=== PATIENT | male | born 1985 | race Caucasian/White ===

== ENCOUNTER 2022-07-09 01:52 | Emergency (ER) | payer OTHER, SELFPAY ==
[2022-07-09] VITALS (12 sets, daily range): BP systolic 115–125; BP diastolic 69–94; PULSE 72–102; RESP 14–22; TEMP 36.9; O2SAT 94–97
--- NOTE | ~2022-07-09 | US_ITS ---
EXAMINATION: US right upper quadrant DATE: 07/09/2022 07:37 INDICATION: Epigastric abdominal pain. TECHNIQUE: Multiple grayscale and Doppler ultrasound images of the abdomen were obtained. COMPARISON: None FINDINGS: The visualized portions of the head and body of the pancreas are normal. The liver is willem l without focal lesion. There is normal flow in main portal vein. The gallbladder is normal in size. No gallstones or gallbladder wall thickening. There is no sonographic Lee sign. The common duct is normal and measures 4 mm . IMPRESSION: 1. Normal right upper quadrant ultrasound. Reviewed, dictated and finalized at location A. RUMENT ADJUSTER
[2022-07-09 02:18] LABS: Basophils Percent Auto 0.2 % (0.2-1.2); Eosinophils Absolute Auto 0.1 K/mm3 (0-0.3); Eosinophils Percent Auto 0.9 % (0-4.4); Hematocrit 43.9 % (42.0-52.0); Hemoglobin 14.7 g/dL (14.0-18.0); Immature Granulocyte Absolute 0.02 K/mm3 (0.00-0.031); Immature Granulocyte Percent A 0.2 % (0-0.5); Lymphocytes Absolute Auto 0.63 K/mm3 (0.9-3.2); Lymphocytes Percent Auto 6.9 % (18.3-44.2); Mean Corpuscular HGB Conc 33.5 g/dl (32-36); Mean Corpuscular Hemoglobin 29.1 pg (26-34); Mean Corpuscular Volume 86.9 fl (80-100); Mean Platelet Volume 10.3 fl (7.4-10.4); Monocytes Absolute Auto 0.3 K/mm3 (0.1-0.6); Monocytes Percent Auto 3.5 % (2.6-8.5); Neutrophils Absolute Auto 8.1 K/mm3 (1.3-6.7); Neutrophils Percent Auto 88.3 % (45.5-73.1); Platelet Count Result 254 k/mm3 (150-375); Red Blood Count 5.05 M/mm3 (4.6-6.20); White Blood Count 9.2 K/mm3 (4.5-10.0)
[2022-07-09 02:32] LABS: Alanine Aminotransferase 90 U/L (6-50); Albumin Level 4.4 g/dL (3.5-5.1); Alkaline Phosphatase 60 U/L (38-126); Anion Gap 7 mmol/L (8-16); Aspartate Amino Transferase 129 U/L (17-59); Bilirubin,Total 1.3 mg/dL (0.2-1.3); Blood Urea Nitrogen 19 mg/dL (9-20); Calcium 8.3 mg/dL (8.4-10.2); Carbon Dioxide 25 mmol/L (22-30); Chloride 104 mmol/L (98-107); Estimated CRCL calculation 141 ml/min; Estimated Glomerular Filt Rate > 60; Glucose 128 mg/dL (65-110); Lipase 82 U/L (23-300); Potassium 3.7 mmol/L (3.4-5.0); Sodium 136 mmol/L (137-145)
--- NOTE | 2022-07-09 05:52 | ED.ABDPAIN ---
HPI - Abdominal Pain General Chief Complaint: Abdominal Pain <Vinicius Mcdaniel MD - Last Filed: 07/09/22 07:10> Stated Complaint: appendicitis/nausea x 12 hours <Vinicius Mcdaniel MD - Last Filed: 07/09/22 07:10> Time Seen by Provider: 07/09/22 05:38 <Vinicius Mcdaniel MD - Last Filed: 07/09/22 07:10> History of Present Illness HPI narrative: Patient is a 36-year-old male who presents ER with nausea. Began at 3 PM yesterday. Persistent. Ended up having emesis here and symptoms improved though he still has some mild nausea. He had about discomfort in his upper abdomen. No lower abdominal pain. No diarrhea but has felt the need to use the restroom and cannot. No radiation of discomfort into the back or shoulder. No urinary frequency urgency or dysuria. <Vinicius Mcdaniel MD - Last Filed: 07/09/22 07:10> Related Data Allergies/Adverse Reactions: Allergies Allergy/AdvReac Type Severity Reaction Status Date / Time No Known Allergies Allergy Verified 07/09/22 01:57 <Vinicius Mcdaniel MD - Last Filed: 07/09/22 07:10> Review of Systems Review of Systems: All systems reviewed & are unremarkable except as noted in HPI and below <Vinicius Mcdaniel MD - Last Filed: 07/09/22 07:10> Constitutional: Constitutional: Denies chills, Denies fatigue and Denies fever(s) <Vinicius Mcdaniel MD - Last Filed: 07/09/22 07:10> ENT: Denies nasal congestion and Denies sore throat <Vinicius Mcdaniel MD - Last Filed: 07/09/22 07:10> Cardiovascular: Cardiovascular: Denies chest pain, Denies rapid heart rate and Denies radiating jaw, neck or arm pain <Vinicius Mdcaniel MD - Last Filed: 07/09/22 07:10> Respiratory: Respiratory: Denies cough and Denies dyspnea <Vinicius Mcdaniel MD - Last Filed: 07/09/22 07:10> Gastrointestinal: Gastrointestinal: Reports abdominal pain, Denies diarrhea, Reports nausea and Reports vomiting <Vinicius Mcdaniel MD - Last Filed: 07/09/22 07:10> Genitourinary: Genitourinary: Denies hematuria, Denies dysuria and Denies urinary frequency <Vinicius Mcdaniel MD - Last Filed: 07/09/22 07:10> [facility] Past Medical History Medical History: Medical History (Updated 07/09/22 @ 08:41 by Vilma New MD) Healthy adult male <Vinicius Mcdaniel MD - Last Filed: 07/09/22 07:10> Surgical History Surgical History: Surgical History (Updated 07/09/22 @ 05:57 by Vinicius Mcdaniel MD) No history of previous surgery <Vinicius Mcdaniel MD - Last Filed: 07/09/22 07:10> Exam Narrative: GENERAL: Well-appearing, well-nourished, and in no acute distress. HEAD: Normocephalic, atraumatic. CHEST: Clear to auscultation. No respiratory distress. HEART: Regular rate and rhythm. Normal peripheral pulses. ABDOMEN: Soft, nontender, nondistended. EXTREMITIES: Normal range of motion. No edema. SKIN: Warm, dry, no rash. NEURO: Alert and oriented x3. PSYCH: Normal mood and affect. <Vinicius Mcdaniel MD - Last Filed: 07/09/22 07:10> Course Vital Signs Vital signs: Vital Signs Temperature 36.9 C 07/09/22 01:54 Pulse Rate 102 H 07/09/22 01:54 Respiratory Rate 16 07/09/22 01:54 Blood Pressure 125/94 H 07/09/22 01:54 Pulse Oximetry 97 07/09/22 01:54 Oxygen Delivery Room Air 07/09/22 01:54 Temperature 36.9 C 07/09/22 01:54 Pulse Rate 78 07/09/22 07:01 Respiratory Rate 20 07/09/22 07:01 Blood Pressure 120/70 07/09/22 07:01 Pulse Oximetry 94 07/09/22 07:01 Oxygen Delivery Room Air 07/09/22 01:54 <Vinicius Mcdaniel MD - Last Filed: 07/09/22 07:10> Vital Signs Temperature 36.9 C 07/09/22 01:54 Pulse Rate 102 H 07/09/22 01:54 Respiratory Rate 16 07/09/22 01:54 Blood Pressure 125/94 H 07/09/22 01:54 Pulse Oximetry 97 07/09/22 01:54 Oxygen Delivery Room Air 07/09/22 01:54 Temperature 36.9 C 07/09/22 01:54 Pulse Rate 78 07/09/22 07:01 Respiratory Rate 20 07/09/22 07:01 Blood Pressure
[2022-07-09] MEDS: ONDANSETRON HCL ODT 4 MG TABLET PO (06:00)
[2022-07-09 06:16] LABS: Add Urine Microscopic? YES; Appearance Urine Clear (Clear); Bilirubin Urine Negative (Negative); Blood Urine Negative (Negative); Color Urine Yellow (Yellow); Glucose Urine UA Negative (Negative); Ketones Urine Negative (Negative); Leukocyte Esterase Ur Negative LEU/UL (Negative); Nitrate Urine Negative (Negative); Protein Urine Negative (Negative); pH Urine 6.5 (5.0-9.0)
[2022-07-09 06:36] LABS: Mucus Urine Rare /lpf; RBC Urine 0-2 /hpf (0-2); WBC Urine 0-3 /hpf
== END 2022-07-09 08:48 | disposition home or self-care (01) ==
PROVIDERS: Emergency Medicine; Emergency Provider Emergency Medicine
DX: R10.10 Upper abdominal pain, unspecified (principal)
CPT/HCPCS: 36415; 76705; 80053; 81001; 83690; 85025; 99284; A9270

== ENCOUNTER 2023-11-11 20:06 | Inpatient (IN) | payer OTHER, SELFPAY ==
[2023-11-11] VITALS (7 sets, daily range): BP systolic 113–154; BP diastolic 64–91; PULSE 73–89; RESP 15–20; TEMP 36.9; O2SAT 93–100
--- NOTE | ~2023-11-11 | XR_ITS ---
Supine and upright views of the abdomen Clinical history: NG tube placement Findings: NG tube is in satisfactory position. Questionable small bowel obstruction or ileus. No free air evident. No abnormal mass lesion or calcification is seen. Osseous structures are intact. Impression: NG tube in satisfactory position. Questionable small bowel obstruction versus ileus. Reviewed, dictated and finalized at [facility]. Impression: NG tube in satisfactory position. Questionable small bowel obstruction versus ileus.
--- NOTE | ~2023-11-11 | XR_ITS ---
EXAMINATION: XR sm bowel follow through WS DATE: 11/12/2023 13:33 INDICATION: Small bowel obstruction TECHNIQUE: Air Traffic Control Supervisor radiograph(s) of the abdomen was/were obtained. Water-soluble oral contrast was admi nistered, and sequential radiographs of the abdomen were obtained until oral contrast was noted to be in the proximal colon. COMPARISON: CT dated 11/11/2023 FINDINGS: Nasogastric tube with tip in proximal side port in the body of the stomach. There are multiple gas-fi lled but not frankly dilated loops of small bowel throughout the visualized abdomen. Moderate amount of scattered colonic stool. Transit time from the stomach to proximal colon was approximately 45-60 m inutes. There is normal caliber and mucosal fold pattern throughout the small bowel. IMPRESSION: 1. Normal small bowel follow-through with resolution of prior obstruction. Reviewed, dictated and finalized at location A.
--- NOTE | ~2023-11-11 | CT_ITS ---
EXAMINATION: CT abdomen pelvis w con DATE: 11/11/2023 22:29 INDICATION: Epigastric pain TECHNIQUE: Computed tomography (CT) of the abdomen and pelvis was performed with 100 mL Omnipaque-350 intravenous contrast. Automated exposure control and iterative reconstruction technique were employe d. The dose-length product was 519.47 mGy-cm. COMPARISON: None. FINDINGS: Lower thorax: Tree-in-bud opacities in the lingula and right middle lobe. Moderate fat-containing hia lobo hernia. Liver: Enlarged. Subcentimeter right lobe hypodensity, likely cyst or hemangioma Biliary/Gallbladder: Gallbladder is normal. No bile duct dilation. Pancreas: No mass or duct dilation. Spleen: Normal. Adrenals:No mass. Kidneys: No suspicious mass, obstructing stone, or hydronephrosis. GI tract: Mild antral wall edema. Multiple loops of dilated proximal small bowel with mild vasa recta edema and interloop fluid, uniform bowel wall enhancement, transition point in the mid abdomen (axia l image 99/219). Fecal appearing small bowel content. No pneumatosis. Normal appendix. Diverticulosis without diverticulitis. Mesentery/Peritoneum: No mass or free air. Small volume ascites Retroperitoneum: No mass. Pelvis: Pelvic organs are within normal limits. Soft Tissues: Soft tissues and body wall unremarkable. Bones: No acute osseous finding. IMPRESSION: Antral gastritis. Proximal small bowel obstruction, transition point in the mid abdomen, possibly secondary to adhesion . Small volume ascites. Reviewed, dictated and finalized at location K. IMPRESSION: Antral gastritis. Proximal small bowel obstruction, transition point in the mid abdomen, possibly secondary to adhesion. Small volume ascites.
[2023-11-11 20:57] LABS: Basophils Percent Auto 0.3 % (0.2-1.2); Eosinophils Percent Auto 0.2 % (0-4.4); Hematocrit 46.4 % (42.0-52.0); Hemoglobin 15.6 g/dL (14.0-18.0); Immature Granulocyte Absolute 0.07 K/mm3 (0.00-0.031); Immature Granulocyte Percent A 0.5 % (0-0.5); Lymphocytes Absolute Auto 1.39 K/mm3 (0.9-3.2); Lymphocytes Percent Auto 9.3 % (18.3-44.2); Mean Corpuscular HGB Conc 33.6 g/dl (32-36); Mean Corpuscular Hemoglobin 29.3 pg (26-34); Mean Corpuscular Volume 87.2 fl (80-100); Mean Platelet Volume 10.6 fl (7.4-10.4); Monocytes Absolute Auto 0.8 K/mm3 (0.1-0.6); Monocytes Percent Auto 5.2 % (2.6-8.5); Neutrophils Absolute Auto 12.6 K/mm3 (1.3-6.7); Neutrophils Percent Auto 84.5 % (45.5-73.1); Platelet Count Result 273 k/mm3 (150-375); Red Blood Count 5.32 M/mm3 (4.6-6.20); Red Cell Distribution Width 12.3 % (11.5-14.5); White Blood Count 14.9 K/mm3 (4.5-10.0)
[2023-11-11 21:06] LABS: Alanine Aminotransferase 41 U/L (6-50); Albumin Level 5.1 g/dL (3.5-5.1); Alkaline Phosphatase 76 U/L (38-126); Anion Gap 11 mmol/L (4-12); Aspartate Amino Transferase 48 U/L (17-59); Bilirubin,Total 1.6 mg/dL (0.2-1.3); Blood Urea Nitrogen 12 mg/dL (9-20); Calcium 10.7 mg/dL (8.4-10.2); Carbon Dioxide 26 mmol/L (22-30); Chloride 102 mmol/L (98-107); Estimated CRCL calculation 138 ml/min; Estimated Glomerular Filt Rate > 60; Glucose 157 mg/dL (65-110); Lipase 243 U/L (23-300); Potassium 3.6 mmol/L (3.4-5.0); Sodium 139 mmol/L (137-145)
[2023-11-11 22:16] LABS: Appearance Urine Turbid (Clear); Bacteria Urine None Seen /hpf; Bilirubin Urine Negative (Negative); Blood Urine Negative (Negative); Color Urine Dark Yellow (Yellow); Glucose Urine UA Negative (Negative); Ketones Urine 2+ mg/dL (Negative); Leukocyte Esterase Ur Negative LEU/UL (Negative); Nitrate Urine Negative (Negative); Non Pathogenic Casts 0-2; Protein Urine 1+ mg/dL (Negative); RBC Urine 0-2 /hpf (0-2); Specific Grav Ur 1.023 (1.001-1.035); Squamous Epithelial Cell Urine None Seen /hpf (Few); WBC Urine 0-5 /hpf (0-3); pH Urine >=9.0 (5.0-9.0)
[2023-11-11 22:26] LABS: Add Urine Microscopic? YES
[2023-11-11 23:15] LABS: Influenza A QL RT-PCR Negative (Negative); Influenza B QL RT-PCR Negative (Negative); SARS-CoV-2 RNA PCR Negative (Negative)
[2023-11-11] MEDS: SODIUM CHLORIDE 0.9% IV 1,000 ML 999 ML IV CONT (23:40)
[2023-11-11] MEDS: ONDANSETRON INJ 4 MG/2 ML VIAL IV PUSH (23:40)
--- NOTE | 2023-11-11 23:42 | ED.ABDPAIN ---
HPI - Abdominal Pain General Chief Complaint: Abdominal Pain <JERRI Winston Last Filed: 11/12/23 01:18> Stated Complaint: abd pain, vomitting <JERRI Winston Last Filed: 11/12/23 01:18> Time Seen by Provider: 11/11/23 23:34 <JERRI Winston Last Filed: 11/12/23 01:18> Source: patient <JERRI Winston Last Filed: 11/12/23 01:18> Mode of arrival: ambulatory <JERRI Winston Last Filed: 11/12/23 01:18> Limitations: no limitations <JERRI Winston Last Filed: 11/12/23 01:18> History of Present Illness HPI narrative: This is a 38-year-old male that presents to the emergency department for abdominal pain, nausea and vomiting. Reports starting this afternoon. He has had mid abdominal discomfort which is crampy in nature. Several episodes of vomiting. Reports previous history of inguinal hernia repairs. Reports subjective fevers and chills. Denies diarrhea. <JERRI Winston Last Filed: 11/12/23 01:18> Related Data Home Medications: Home Medications Medication Instructions Recorded Confirmed No Home Medications 11/12/23 11/12/23 <JERRI Winston Last Filed: 11/12/23 01:18> Allergies/Adverse Reactions: Allergies Allergy/AdvReac Type Severity Reaction Status Date / Time No Known Allergies Allergy Verified 11/11/23 20:53 <JERRI Winston Last Filed: 11/12/23 01:18> Review of Systems Review of Systems: CONSTITUTIONAL: Denies fever GASTROINTESTINAL: Reports abdominal pain, nausea, vomiting. Denies diarrhea. <JERRI Winston Last Filed: 11/12/23 01:18> All systems reviewed & are unremarkable except as noted in HPI and below <JERRI Winston Last Filed: 11/12/23 01:18> [facility] Past Medical History Medical History: Medical History Healthy adult male <Yuliya Gary PA-C - Last Filed: 11/12/23 01:18> Surgical History Surgical History: Surgical History History of inguinal hernia repair x 2 laparoscopic <Yuliya Gary PA-C - Last Filed: 11/12/23 01:18> Social History Social History: Social History Smoking status: Never smoker Second hand tobacco smoke exposure: No Alcohol intake: never Substance use: never Substance use type: does not use Do You Feel Safe in your Home?: Yes Lack of Transportation: No Lack of Food: Never True Current Housing: I Have Housing Concerned About Future Housing: No Difficulty Paying Gas/Electric Bills: No Difficulty Paying for Meds: No Currently Unemployed: No Education: Master's Degree or Higher Difficulty w/ Childcare or Family Care: No Spiritual care concerns: No <Yuliya Gary PA-C - Last Filed: 11/12/23 01:18> Exam Narrative: GENERAL: Well-appearing, well-nourished, and in no acute distress. HEAD: Normocephalic, atraumatic. EYES: EOMI. CHEST: Clear to auscultation. No respiratory distress. No wheezes rales or rhonchi HEART: Regular rate and rhythm. No murmur heard. Normal peripheral pulses. ABDOMEN: Soft, nondistended, hypoactive bowel sounds. Mild tenderness to palpation in the mid abdomen, without guarding EXTREMITIES: Normal range of motion. No edema. SKIN: Warm, dry, no rash. NEURO: No focal deficits. Alert and oriented x3. PSYCH: Normal mood and affect <Yuliya Gary PA-C - Last Filed: 11/12/23 01:18> Course Course Emergency Course: Patient updated on his workup and need for admission <Yuliya Gary PA-C - Last Filed: 11/12/23 01:18> ADMISSIONS CLERK/PA Physician Supervision For this patient encounter, I reviewed the ADMISSIONS CLERK or PA documentation, treatment plan, and medical decision making and had [id number] time with this patient. I performed all aspects of the MDM as documented. <Romulo Byrne.
[2023-11-11] MEDS: MORPHINE SULFATE (*CRX) 4 MG/ML INJ IV PUSH (23:52)
[2023-11-12 00:03] VITALS: BP 105/76; PULSE 95; RESP 18; O2SAT 97
[2023-11-12] MEDS: SODIUM CHLORIDE 0.9% IV 1,000 ML 125 ML IV CONT ×2 (00:14→10:24)
[2023-11-12] MEDS: PANTOPRAZOLE SODIUM IV 40 MG VIAL IV PUSH ×2 (00:43→20:03)
--- NOTE | 2023-11-12 01:16 | ADMGEN ---
This patient, Noe Gan, was admitted to [facility] Surg Room 306-02. Patient/family oriented to hospital policies and general routines including ID bracelet, bed and alarms, visiting hours, pain management, procedures, bathroom and other care routines, personal items, smoking policy, room service/diet, and visiting hours. Information on how to activate the Rapid Response Team has been discussed. Patient/Family are encouraged to report perceived risks to care and to ask questions if they do not understand what they are told or what they should do.
[2023-11-12 01:18] VITALS: BP 134/70; PULSE 91; RESP 16; TEMP 37.3; O2SAT 97; BMI 29.1
[2023-11-12 01:23] VITALS: BMI 28.8
[2023-11-12] MEDS: KETOROLAC 30 MG/ML VIAL (*BKC) 15 MG IV PUSH (01:42)
[2023-11-12] MEDS: ONDANSETRON INJ 4 MG/2 ML VIAL IV PUSH ×3 (01:42→14:02)
[2023-11-12 05:54] VITALS: BP 106/57; PULSE 85; RESP 16; TEMP 37.5; O2SAT 97
[2023-11-12 06:58] LABS: Basophils Percent Auto 0.2 % (0.2-1.2); Eosinophils Percent Auto 0.2 % (0-4.4); Hematocrit 40.4 % (42.0-52.0); Immature Granulocyte Absolute 0.07 K/mm3 (0.00-0.031); Immature Granulocyte Percent A 0.5 % (0-0.5); Lymphocytes Absolute Auto 1.53 K/mm3 (0.9-3.2); Lymphocytes Percent Auto 11.2 % (18.3-44.2); Mean Corpuscular HGB Conc 32.2 g/dl (32-36); Mean Corpuscular Hemoglobin 28.9 pg (26-34); Mean Corpuscular Volume 89.8 fl (80-100); Mean Platelet Volume 10.9 fl (7.4-10.4); Monocytes Absolute Auto 0.8 K/mm3 (0.1-0.6); Monocytes Percent Auto 6.2 % (2.6-8.5); Neutrophils Absolute Auto 11.1 K/mm3 (1.3-6.7); Neutrophils Percent Auto 81.7 % (45.5-73.1); Platelet Count Result 234 k/mm3 (150-375); Red Cell Distribution Width 12.4 % (11.5-14.5); White Blood Count 13.6 K/mm3 (4.5-10.0)
[2023-11-12 07:06] LABS: Alanine Aminotransferase 34 U/L (6-50); Albumin Level 3.8 g/dL (3.5-5.1); Alkaline Phosphatase 48 U/L (38-126); Anion Gap 3 mmol/L (4-12); Aspartate Amino Transferase 37 U/L (17-59); Bilirubin,Total 1.9 mg/dL (0.2-1.3); Blood Urea Nitrogen 15 mg/dL (9-20); Calcium 8.7 mg/dL (8.4-10.2); Carbon Dioxide 28 mmol/L (22-30); Chloride 105 mmol/L (98-107); Estimated CRCL calculation 122 ml/min; Estimated Glomerular Filt Rate > 60; Glucose 107 mg/dL (65-110); Potassium 3.9 mmol/L (3.4-5.0); Sodium 136 mmol/L (137-145)
[2023-11-12] MEDS: MORPHINE SULFATE (*CRX) 4 MG/ML INJ IV PUSH (10:29)
--- NOTE | 2023-11-12 11:48 | PM.IMHP ---
H&P: HPI History of Present Illness Date/Time: 11/12/23 11:48 Chief Complaint: Abdominal pain Narrative: This is a 38-year-old man who presented to the ER with complaints of abdominal pain. He reports having a sudden onset of generalized pain around 2:00 p.m. yesterday afternoon. His pain progressively got worse throughout the day and he developed nausea and vomiting. He denies ever having pain like this in the past. No previous history of a bowel obstruction. His last bowel movement was right around the time his pain began and was a small amount. Since then, no flatus or BMs. He denies any diarrhea, nausea, or vomiting leading up to his symptoms yesterday. He presented to the ER for further evaluation. [place] [id number] scan of the abdomen and pelvis shows antral gastritis, proximal small-bowel obstruction with transition point in the mid abdomen possibly secondary to an adhesion, and small volume ascites. He had an NG tube placed and was started on IV fluids. He is now seen on the medical floor. He reports having a history of 2 previous hernia repairs. He believes he had an open inguinal hernia repair and possibly bilateral laparoscopic inguinal hernia repair in the past. He is having difficulty giving me further history due to the discomfort of the NG tube. He is gagging almost every time he tries talking. He is no longer having any abdominal pain this morning and denies any nausea. His only complaint is the discomfort of the NG tube. Review of Systems Review of Systems: All systems reviewed & are unremarkable except as noted in HPI and below PMFSH Past Medical History Medical History Healthy adult male Surgical History Surgical History History of inguinal hernia repair x 2 laparoscopic Social History Social History Smoking status: Never smoker Second hand tobacco smoke exposure: No Alcohol intake: never Substance use: never Substance use type: does not use Do You Feel Safe in your Home?: Yes Lack of Transportation: No Lack of Food: Never True Current Housing: I Have Housing Concerned About Future Housing: No Difficulty Paying Gas/Electric Bills: No Difficulty Paying for Meds: No Currently Unemployed: No Education: Master's Degree or Higher Difficulty w/ Childcare or Family Care: No Spiritual care concerns: No Meds Home Medications and Allergies Home Medications Medication Instructions Recorded Confirmed Type No Home Medications 11/12/23 11/12/23 History Allergies Allergy/AdvReac Type Severity Reaction Status Date / Time No Known Allergies Allergy Verified 11/11/23 20:53 Vital Signs Vital Signs - 24 hr 11/11/23 20:07 11/11/23 20:49 11/11/23 21:00 Temperature 98.4 F Pulse Rate 80 76 73 Respiratory Rate 16 20 16 Blood Pressure 153/85 H 135/91 H 133/71 Pulse Oximetry 100 95 93 Oxygen Delivery Room Air 11/11/23 21:15 11/11/23 21:30 11/11/23 21:45 Temperature Pulse Rate 75 85 89 Respiratory Rate 18 20 Blood Pressure 125/71 113/70 117/64 Pulse Oximetry 94 99 98 Oxygen Delivery 11/11/23 23:42 11/12/23 00:03 11/12/23 01:18 Temperature 99.1 F Pulse Rate 74 95 91 Respiratory Rate 15 18 16 Blood Pressure 154/80 H 105/76 134/70 Pulse Oximetry 99 97 97 Oxygen Delivery 11/12/23 05:54 11/12/23 10:25 Temperature 99.5 F Pulse Rate 85 Respiratory Rate 16 Blood Pressure 106/57 L Pulse Oximetry 97 Oxygen Delivery Room Air Exam Const: General: comfortable and no acute distress Nutritional Appearance: average body habitus Orientation/consciousness: patient oriented x3 HENMT: Head: normocephalic and atraumatic Ears: hearing grossly normal bilaterally Mouth: Yes moist mucous membranes Eyes: General: appearance norm
[2023-11-12 14:00] VITALS: BP 127/62; PULSE 87; RESP 16; TEMP 36.3; O2SAT 95
[2023-11-12] MEDS: PHENOL/SOD PHENO SPRAY CHERRY (*BKC) 1 SPRAY MUCOUS MEM (15:33)
[2023-11-12] MEDS: BENZOCAINE/MENTHOL (*BKC) 18 EA LOZENGE 1 LOZENGE PO (15:34)
[2023-11-12] MEDS: SODIUM CHLORIDE 0.9% IV 1,000 ML 100 ML IV CONT (20:08)
[2023-11-12 21:48] VITALS: BP 121/65; PULSE 68; RESP 14; TEMP 37.6; O2SAT 98
[2023-11-13] MEDS: SODIUM CHLORIDE 0.9% IV 1,000 ML 100 ML IV CONT (05:54)
[2023-11-13 06:00] VITALS: BP 122/62; PULSE 68; RESP 12; TEMP 37.2; O2SAT 98
[2023-11-13] MEDS: PANTOPRAZOLE SODIUM IV 40 MG VIAL IV PUSH (09:38)
[2023-11-13] MEDS: PHENOL/SOD PHENO SPRAY CHERRY (*BKC) 1 SPRAY MUCOUS MEM (09:45)
--- NOTE | 2023-11-13 10:31 | PM.DS ---
DS: Admitting Diagnosis Discharge Date 11/13/2023 Admitting Diagnosis Small-bowel obstruction Gastritis Dehydration DS: Discharge Diagnosis Discharge Diagnosis (1) SBO (small bowel obstruction): Code(s): K56.609 - Unspecified intestinal obstruction, unspecified as to partial versus complete obstruction Status: Acute (2) Dehydration: Code(s): E86.0 - Dehydration Status: Acute Assessment and Plan: Resolved (3) Gastritis: Qualifiers: Chronicity: acute Gastritis bleeding: without bleeding Gastritis type: unspecified gastritis Qualified Code(s): K29.00 - Acute gastritis without bleeding Code(s): K29.70 - Gastritis, unspecified, without bleeding Status: Acute DS: Summary Hospital Course Reason for hospitalization: This is a 38-year-old man who presented to the ER with complaints of abdominal pain.?Workup in the ER showed dehydration and CT evidence of a proximal small bowel obstruction, gastritis. He has a history of two previous inguinal hernia repairs, one being laparoscopic. He is unsure of the details of the surgeries. He was admitted for surgical evaluation and treatment. Hospital Course: He was treated conservatively with NG tube decompression, IV fluids, analgesics, and bowel rest. He was also started on IV Protonix while having the NG tube and findings of gastritis on the CT. He does admit to a history of symptoms of reflux. He had clinically improved by the following day. He had a water-soluble small bowel follow-through, which was normal. The obstruction resolved and his NG tube was removed. His diet was slowly advanced to soft foods today. He is tolerating his diet. No nausea or vomiting. Bowels are moving. His abdominal pain has resolved. He is stable for discharge today. Status at Discharge Functional status at discharge: independent ambulation Overall status at discharge: patient is back to baseline Time Spent with Patient Time attestation: Total time spent providing and/or coordinating discharge services: Time spent: Less than 30 minutes Exam Const: General: comfortable and no acute distress Orientation/consciousness: patient oriented x3 GI: Inspection: non-distended GI Palp: Yes Soft to palpation, No Tenderness to palpation present (GI), No Guarding due to palpation present (GI) and No Rebound tenderness present Percussion: Yes normal to percussion Auscultation: normal bowel sounds DS: Data Imaging Radiologist's impression: ITS Impressions Abdomen/Pelvis CT 11/11/23 23:07 IMPRESSION: Antral gastritis. Proximal small bowel obstruction, transition point in the mid abdomen, possibly secondary to adhesion. Small volume ascites. Abdomen X-Ray 11/12/23 06:00 Impression: NG tube in satisfactory position. Questionable small bowel obstruction versus ileus. Small Bowel X-Ray 11/12/23 14:53 IMPRESSION: 1. Normal small bowel follow-through with resolution of prior obstruction. Discharge Plan Discharge Attending physician on discharge: Graham Haywood Consulting providers: Blayne Nicolas; Yuliya Gary Discharging Clinician: Tootie Belcher Anticipated Discharge Date/Time: 11/13/23 13:00 Patient Disposition: Home, Self-Care Activity: as tolerated Diet: as tolerated Discharge Instructions: Continue a soft diet for the next few days. Chew your food well. Return to the ER if you develop abdominal pain or vomiting. No follow-up with surgery needed. Avoid NSAID use (Ibuprofen, Aleve, naproxen, etc.) Take omeprazole over the counter 1 tablet (20 mg) daily for 3-4 weeks. If no reflux symptoms, okay to stop the medication. Would recommend establishing care with a primary care doctor to follow-up and manage further reflux. Patient Instructions: Antibiotic Form Stand Alone Forms: General Discharge Information Follow-up/Referrals: Blayne Nicolas MD [Physician] - 2 Weeks Dis
[2023-11-13] MEDS: ACETAMINOPHEN 500 MG TABLET 1000 MG PO (11:11)
== END 2023-11-13 13:30 | disposition home or self-care (01) | DRG 390 ==
LOC: ANHED 23:53 → ANH3MEDSUR 11-12 00:44
PROVIDERS: Emergency Medicine; Admitting Provider Surgery; Emergency Provider Physician Assistant; Visit Provider Nurse Practitioner Family
DX: K56.609 Unspecified intestinal obstruction, unspecified as to partial versus complete obstruction (principal); E86.0 Dehydration; K29.00 Acute gastritis without bleeding; Z20.822 Contact with and (suspected) exposure to COVID-19
CPT/HCPCS: 36415; 74177; 74250; 80053; 81001; 83690; 85025; 87636; 96361; 96374; 96375; 96376; 99285; A9270; C9113; G0378; J1885; J2270; J2405; J7030; Q9967

== ENCOUNTER 2024-10-21 00:04 | Emergency (ER) | payer OTHER, SELFPAY ==
--- NOTE | ~2024-10-21 | CT_ITS ---
CT of the Abdomen and Pelvis: Indication: Abdominal pain Technique: 2.5 mm axial scans were obtained through the abdomen and pelvis following intravenous adm inistration of 100 cc of Omnipaque 350. Dose reduction technique was used on this scan by utilizing a utomated exposure control and iterative reconstruction technique. The dose-length product (DLP) was 1 005.25 mGy-cm. COMPARISON: 11/11/2023 Findings: Scans through the lung bases are unremarkable. The liver, spleen, pancreas, gallbladder, adrenals and kidneys are within normal limits. No evidence of aortic aneurysm. No lymphadenopathy. There are multiple mildly distended small bowel loops, without a well delineated transition point, ng ggestive of early or partial small bowel obstruction. Large bowel unremarkable. Images through the pelvis were performed. Urinary bladder unremarkable. No pelvic mass seen. No ascit es. Impression: Findings suspicious for early or partial small bowel obstruction. Reviewed, dictated and finalized at [facility]. Impression: Findings suspicious for early or partial small bowel obstruction.
--- OUTSIDE RECORDS SUMMARY | 2024-10-21 00:06 | XMS_ITS | Referral Summary ---
Author Organization [facility] Address [address] [place] [phone] Care Team Providers Care Sole Seamer Name Role Phone Lyle Ovalle MD Primary Care Provider [phone] Allergies No known active allergies Medications omeprazole (PriLOSEC) 20 mg capsuleIndicatio ns:Gastroesophag eal reflux disease without esophagitis Take 1 capsule (20 mg total) by mouth daily 90 capsule 4 Active omeprazole (PriLOSEC) 20 mg capsule Take 1 capsule (20 mg total) by mouth daily 90 capsule 5 Active omeprazole (PriLOSEC) 20 mg capsule Take 1 capsule (20 mg total) by mouth daily 10/06/19 25 Discontinu ed(Reorder ) Active Problems Problem Noted Date Diagnosed Date Screening for colon cancer 05/04/2024 Abdominal pain 04/27/2024 Assessment & Plan (05/07/2024 9:36 AM CDT): Pt will have colonoscopy/EGD on Friday with GI. Encourage daily probiotic, fiber and increased water intake. Abdominal bloating 04/27/2024 Assessment & Plan (05/07/2024 9:37 AM CDT): As below Encounter for medical examination to establish c are 04/05/2024 Assessment & Plan (04/05/2024 3:28 PM CDT): A(n) initial well visit to establish care has been performed today. Drake Kan is not up to date on screening tests. He is in need of hep B, C and Cholesterol screening. He is not up to date on needed preventative vaccinations; He is in need of Tdap/Td and Influenza. We discussed healthy lifestyle habits, educational material has been given. Medications reviewed, changes documented as per the medical record and discussed with patient along with risks vs benefits. Specific topics reviewed: drugs, ETOH, and tobacco, importance of regular dental care, importance of regular exercise, importance of varied diet, limit TV, media violence, minimize junk food, and seat belts. Return in 1 year Gynecomastia, male 04/05/2024 Social History Tobacco Use Types Packs/Day Years Used Date Smoking Tobacco: Never Cigarettes Smokeless Tobacco: Never Tobacco Cessation:Counseling Given: Not Answered AUDIT-C Answer Date Recorded Q1: How often do you have a drink containing alc ohol? 2-3 times a week 05/10/2024 Q2: How many drinks containi ng alcohol do you have on a typical day when you are drinking? 1 or 2 05/10/2024 Q3: How often do you have si x or more drinks on one occasion? Never 05/10/2024 PHQ-2 Answer Date Recorded PHQ-2 Total Score (If total score is 3 or more points, staff should administer the PHQ-9) 0 05/07/2024 Personal Safety Answer Date Recorded Have you ever been in or are you currently in a harmful physical or emotional relationship or is someone making you feel afraid or unsafe? Denies 05/10/2024 Sex and Gender Information Value Date Recorded Sex Assigned at Not on file Legal Sex Male 12:30 PM CDT Gender Identity Male 03/29/2024 8:47 AM CDT Sexual Orientation Straight 03/29/2024 8: 47 AM CDT Occupation Industry Job Start Date Job End Date campus [employer] Not on file Not on file Not on file Last Filed Vital Signs Vital Sign Reading Time Taken Comments Blood Pressure 108/68 05/10/2024 1:21 PM CDT Pulse 56 05/10/2024 1:21 PM CDT Temperature 36.4 C (97.6 F) 05/10/2024 1:01 PM CDT Respiratory Rate 12 05/10/2024 1:21 PM CDT Oxygen Saturation 100% 05/10/2024 1:21 PM CDT Inhaled Oxygen Concentration - - Weight 93.9 kg (207 lb) 05/07/2024 8:57 AM CDT Height 182.9 cm (6') 05/07/2024 8:57 AM CDT Body Mass Index 28.07 05/07/2024 8:57 AM CDT Plan of Treatment Not on file Procedures Procedure Name Priority Date/Time Associated Diagnosis Comments HEPATITIS C ANTIBODY Routine 04/08/2024 1:30 PM CDT from Last 3 Months or Most Recently Relevant to Health Maintenance Results * Hepatitis C antibody (04/08/2024 1:30 PM CDT) Hep C Ab NON-REACTI VE NON-REACT [facility] Comment: HCV antibody was non-reactive. There is no laboratory evidence of HCV infection. In most cases, no further action is required. However, if recent HCV exposure is suspected, a test for HCV RNA (test code 45842) is suggested. For additional information please refer to http://education.Zuki/faq/NDO74h6 (This link is being provided for informational/ educational purposes only.) 04/08/2024 1:30 PM CDT 04/08/2024 1:35 PM CDT Narrative [facility] - 04/09/2024 6:55 AM CDT FASTING:NO FASTING: NO Lyle Ovalle MD LAB MICROBIOLOGY - GENERAL ORDERABLES Final Result [facility] [address] [place] [address] from Last 3 Months or Most Recently Relevant to Health Maintenance Insurance [employer] [place] HMO/POS [employer] [place] HMO/POS Care Teams Sole Seamer Relationship Specialty Start Date End Date Lyle Ovalle MD [address] [place] [address] PCP - General Family Medicine 04/05/24
--- OUTSIDE RECORDS SUMMARY | 2024-10-21 00:06 | XMS_ITS | Clinical Summary ---
Author Organization [facility] Address [address] [place] [phone] Care Team Providers Care Finish Saw Operator Name Role Phone Lyle Ovalle MD Primary Care Provider [phone]- [phone] Allergies No known active allergies Medications omeprazole [...] Return in 1 year Gynecomastia, male 04/05/2024 Surgical History Surgery Date Site/Laterality Comments HERNIA REPAIR 07/21/2014 - 07/20/2015 Left scrotal inguinal HERNIA REPAIR 07/21/2017 - 07/20/2018 Right scrotal inguinal Medical History Medical History Date Comments Nasal polyp History of small bowel obstruction 2023 Family History Medical History Relation Name Comments No Known Problems Brother Valvular heart disease Father heart valve replacement Father No Known Problems Maternal Grandfather No Known Problems Maternal Grandmother No Known Problems Mother Cancer Paternal Grandfather [place] Cancer Paternal Grandmother Vishal Heart attack Paternal Grandmother Vishal No Known Problems Sister Relation Name Status Comments Brother Alive Father Alive Maternal Grandfather Maternal Grandmother Mother Alive Paternal Grandfather [place] Paternal Grandmother Ericaiya Sister Alive Social History Tobacco Use Types Packs/Day Years [...] 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 Not on file Not on file Obstetrics History Last Filed Vital Signs Vital Sign Reading [...] 05/07/2024 8:57 AM CDT Plan of Treatment Health Maintenance Due Date Last Done Comments Influenza Vaccine (#1) 2024 Regular Well Visit/Exam 18-64 04/05/2025 04/05/2024 Depression Screening 05/07/2025 05/07/2024, 04/05/2024 Hepatitis B Screening Completed 04/08/2024 Hepatitis C Screening Completed 04/08/2024 DTaP/Tdap/Td Vaccine Discontinued HPV Vaccines Aged Out No longer eligi ble based on patient's age to complete this topic Pneumococcal vaccine <65 Aged Out No longer eligible based on patient's age to complete this topic Varicella Vaccines Discontinued Procedures Procedure Name Priority Date/Time Associated Diagnosis Comments HEPATITIS C ANTIBODY Routine 04/08/2024 1:30 PM CDT from Last 3 Months or Most Recently Relevant to Health Maintenance Results * Hepatitis C antibody (04/08/2024 1:30 PM CDT) Hep C Ab NON-REACTI VE NON-REACT OF[facility] Comment: HCV antibody was non-reactive. There is no laboratory evidence of HCV infection. In most cases, no further action is required. However, if recent HCV exposure is suspected, a test for HCV RNA (test code 60394) is suggested. For additional information please refer to http://education.KeyLemon/faq/GRS11y8 (This link is being provided for informational/ educational purposes only.) 04/08/2024 1:30 PM CDT 04/08/2024 1:35 PM CDT Narrative [facility] - 04/09/2024 6:55 AM CDT FASTING:NO FASTING: NO us Lyle Ovalle MD LAB MICROBIOLOGY - GENERAL ORDERABLES Final Result [facility] [address] [place] [address] from Last 3 Months or Most Recently Relevant to Health Maintenance Insurance [employer] [place] HMO/POS [employer] [place] H[employer]/POS Care Teams Finish Saw Operator Relationship Specialty Start Date End Date Lyle Ovalle MD [address] [place] [address] PCP - General Family Medicine 04/05/24
--- OUTSIDE RECORDS SUMMARY | 2024-10-21 00:06 | XMS_ITS | Clinical Summary ---
Author Organization [facility] Address [address] [place] [address] Care Team Providers Care Attending Psychiatrist Name Role Phone None, Physician Primary Care Provider Unavailabl e Source Comments [facility],non-owned Affiliates and Associated Physician Practices is amultiple site organization consisting of ambulatory clinics and hospital sitesin [place], [place], [place] and [place]. This disclosure is being madepursuant to the Care Everywhere program and may not contain all information available regarding this patient. Last updated 18.[facility] Allergies No known active allergies Medications * Be aware that medications may not be up to date on this document. Alwaysverify current medications with the patient. Medication Sig Dispensed Refills Start Date End Date Status omeprazole (PriLOSEC) 20 MG capsule Take 1 (one) capsule by mouth once daily 07/07/2024 Active cetirizine (ZyrTEC) 10 MG tablet Take 1 (one) tablet by mouth once daily 90 tablet 4 09/14/2024 Active azelastine (Astelin) 0.1 % nasal spray [place] 1 (one) spray into each nostril 2 times daily 90 mL 4 09/14/2024 Active fluticasone propionate (Flonase) 50 MCG/ACT nasal spray SPRAY 2 SPRAYS INTO EACH NOSTRIL EVERY DAY 16 g 2 10/11/2024 Active fluticasone propionate (Flonase) 50 MCG/ACT nasal spray [place] 2 (two) sprays into each nostril once daily 16 g 09/14/2024 10/11/2024 Discontinued Active Problems No known active problems Encounters Date Type Department Care Team Description 10/11/[address] [facility] [address] [place] [phone] Sal Kaiser MD Refill Request 09/14/2024 8:45 AM MID LEVEL PROJECT MANAGER Office Visit [facility] [address] [place] [phone] Lamont Quintana MD Rhinitis, unspecified type (Primary Dx); S/P FESS (functional endoscopic sinus surgery); Deviated septum 09/14/2024 Travel from Last 3 Months Social History Tobacco Use Types Packs/Day Years Used Date Smoking Tobacco: Never Smokeless Tobacco: Never Tobacco Cessation:Counseling Given: Not Answered Alcohol Use Standard Drinks/Week Comments Yes 2 (1 standard drink = 0.6 oz pur e alcohol) Sex and Gender Information Value Date Recorded Sex Assigned at Not on file Gender Identity Not on file Sexual Orientation Not on file Last Filed Vital Signs Vital Sign Reading Time Taken Comments Blood Pressure 101/71 09/14/2024 8:46 AM MID LEVEL PROJECT MANAGER Pulse 78 09/14/2024 8:46 AM MID LEVEL PROJECT MANAGER Temperature - - Respiratory Rate - - Oxygen Saturation - - Inhaled Oxygen Concentration - - Weight 98.5 kg (217 lb 3.2 oz) 09/14/2024 8:46 A M MID LEVEL PROJECT MANAGER Height 182.9 cm (6') 09/14/2024 8:46 AM MID LEVEL PROJECT MANAGER Body Mass Index 29.46 09/14/2024 8:46 AM MID LEVEL PROJECT MANAGER Plan of Treatment Upcoming Encounters Date Type Department Care Team (Late st Contact Info) Description 10/26/2024 2:45 PM CDT Office Visit [facility] [address] [place] [phone] Lamont Quintana MD [address] [place] [address] [place] [address] Health Maintenance Due Date Last Done Comments HIV SCREENING 11/05/2002 HEPATITIS C SCREENING 11/01/2005 DTAP/TDAP/TD VACCINES (1 - Tdap) 11/05/2006 HEPATITIS B VACCINE (1 of 3 - 19+ 3-dose series) 11/05/2006 COVID-19 VACCINE (2023-2 5 season) 2024 DEPRESSION SCREENING 07/21/2024 INFLUENZA VACCINE (Season Ended) 2025 ZOSTER VACCINE (1 of 2) 11/05/2037 HIB VACCINE Aged Out No longer eligi ble based on patient's age to complete this topic HPV VACCINE Aged Out No longer eligi ble based on patient's age to complete this topic MENINGOCOCCAL (Group B) VACC INE SHARED DECISION-MAKING Aged Out No longer eligibl e based on patient's age to complete this topic MENINGOCOCCAL GROUPS A/C/Y/W VACCINE Aged Out No longer eligible b ased on patient's age to complete this topic PNEUMOCOCCAL VACCINE Aged Out No long er eligible based on patient's age to complete this topic Procedures Procedure Name Priority Date/Time Associated Diagnosis Comments [place] LARYNGOSCOPY,FLEX FIBER,DIAGNOSTIC Routine 09/14/2024 9:47 AM MID LEVEL PROJECT MANAGER Rhinitis, unspecified type S/P FESS (functional endoscopic sinus surgery) Deviated septum from Last 3 Months Results * [place] LARYNGOSCOPY,FLEX FIBER,DIAGNOSTIC (09/14/2024 9:47 AM MID LEVEL PROJECT MANAGER) Narrative Sal Kaiser MD - 09/14/2024 9:47 AM MID LEVEL PROJECT MANAGER Sal Kaiser MD 09/14/2024 2:50 PM Procedure Note Anesthesia: Lidocaine 2% and Diego-Synephrine 1/2% Endoscopy Type: Flexible Wapry-[id number]-[id number] Procedure Details: Informed consent was obtained. The patient was placed in the sitting position. After topical anesthesia and decongestion, the 4 mm laryngoscope was passed. The nasal cavities, nasopharynx, oropharynx, hypopharynx, and larynx were all examined. Vocal cords were examined during respiration and phonation. The following findings were noted: Widely patent maxillary antrostomies, surgically altered ethmoids, patent sphenoid sinuses. Septum deviated to the left. Normal nasopharynx and oropharynx. Normal adduction and abduction of vocal cords. No lesions or nodules visible in larynx. Immediate subglottis is normal. The patient tolerated procedure well. Complications: None Lamont Quintana MD PROCEDURE/MINOR S URGICAL ORDERABLES from Last 3 Months Care Teams Attending Psychiatrist Relationship Specialty Start Date End Date None, Physician PCP - General 09/14/24
[2024-10-21 00:10] VITALS: BP 131/77; PULSE 81; RESP 14; TEMP 36.8; O2SAT 100
--- NOTE | 2024-10-21 00:23 | ED.ABDPAIN ---
HPI - Abdominal Pain General Chief Complaint: Abdominal Pain <Yuliya Gary PA-C - Last Filed: 10/25/24 09:19> Stated Complaint: abd pain <Yuliya Gary PA-C - Last Filed: 10/25/24 09:19> Time Seen by Provider: 10/21/24 00:08 <Yuliya Gary PA-C - Last Filed: 10/25/24 09:19> Source: patient <JERRI Winston Last Filed: 10/25/24 09:19> Mode of arrival: ambulatory <JERRI Winston Last Filed: 10/25/24 09:19> Limitations: no limitations <Yuliya Gary PA-C - Last Filed: 10/25/24 09:19> History of Present Illness HPI narrative: This is a 38 year old male that presents to the ER for abdominal pain, nausea. Reports history of bowel obstruction. Denies fever, vomiting. <Yuliya Gary PA-C - Last Filed: 10/25/24 09:19> This is a 38 year old male that presents to the ER for abdominal pain, nausea. Reports history of bowel obstruction. Denies fever, vomiting. No recent illnesses or sick contacts. He states his symptoms today do not resemble the bowel obstruction the had last year that was managed conservatively. No recent procedures. He had a colonoscopy in the last year. Denies any chest pain, shortness a breath, back pain, flank pain, urinary complaints, bloating, constipation, diarrhea. His last bowel movement was 8 p.m and normal. <Los Renteria MD - Last Filed: 10/21/24 06:07> Related Data Allergies/Adverse Reactions: Allergies Allergy/AdvReac Type Severity Reaction Status Date / Time No Known Allergies Allergy Verified 10/21/24 00:05 <Yuliya Gary PA-C - Last Filed: 10/25/24 09:19> Review of Systems Review of Systems: CONSTITUTIONAL: Denies fever GASTROINTESTINAL: Reports abdominal pain, nausea. Denies vomiting <Yuliya Gary PA-C - Last Filed: 10/25/24 09:19> All systems reviewed & are unremarkable except as noted in HPI and below <Yuliya Gary PA-C - Last Filed: 10/25/24 09:19> [facility] Past Medical History Medical History: Medical History Healthy adult male <Yuliya Gary PA-C - Last Filed: 10/25/24 09:19> Surgical History Surgical History: Surgical History History of inguinal hernia repair x 2 laparoscopic <Yuliya Gary PA-C - Last Filed: 10/25/24 09:19> Social History Social History: Social History Smoking status: Never smoker Second hand tobacco smoke exposure: No Alcohol intake: never Substance use: never Substance use type: does not use Do You Feel Safe in your Home?: Yes Lack of Transportation: No Lack of Food: Never True Current Housing: I Have Housing Concerned About Future Housing: No Difficulty Paying Gas/Electric Bills: No Difficulty Paying for Meds: No Currently Unemployed: No Education: Master's Degree or Higher Difficulty w/ Childcare or Family Care: No Spiritual care concerns: No <Yuliya Gary PA-C - Last Filed: 10/25/24 09:19> Exam Narrative: GENERAL: Uncomfortable, well-nourished, and in no acute distress. HEAD: Normocephalic, atraumatic. EYES: EOMI. CHEST: Clear to auscultation. No respiratory distress. No wheezes rales or rhonchi HEART: Regular rate and rhythm. No murmur heard. Normal peripheral pulses. ABDOMEN: Soft, nondistended, normal active bowel sounds. Mild tenderness to palpation throughout the abdomen, without guarding EXTREMITIES: Normal range of motion. No edema. SKIN: Warm, dry, no rash. NEURO: No focal deficits. Alert and oriented x3. PSYCH: Normal mood and affect <Yuliya Gary PA-C - Last Filed: 10/25/24 09:19> Course Vital Signs Vital signs: Vital Signs Temperature 98.3 F 10/21/24 00:10 Pulse Rate 81 10/21/24 00:10 Respiratory Rate 14 10/21/24 00:10 Blood Pressure 131/77 10/21/24 00:10 Pulse Oximetry 100 10/21/24 00:10 Oxygen Delivery Room Air 10/21/24 00:10 Temperature 98.3 F 10/21/24 00:10 Pulse Rate 78 10/21/24 04:18 Respiratory Rate 16 10/21/24 04:18 Blood Pressure 113/60 10/21/24 04:18 Pulse Oximetry 98 10/21/24 04:18 Oxygen Delivery Room Air 10/21/24 00:10 <Yuliya Gary PA-C - Last Filed: 10/25/24 09:19> Vital Signs Temperature 98.3 F 10/21/24 00:10 Pulse Rate 81 10/21/24 00:10 Respiratory Rate 14 10/21/24 00:10 Blood Pressure 131/77 10/21/24 00:10 Pulse Oximetry 100 10/21/24 00:10 Oxygen Delivery Room Air 10/21/24 00:10 Temperature 98.3 F 10/21/24 00:10 Pulse Rate 78 10/21/24 04:18 Respiratory Rate 16 10/21/24 04:18 Blood Pressure 113/60 10/21/24 04:18 Pulse Oximetry 98 10/21/24 04:18 Oxygen Delivery Room Air 10/21/24 00:10 <Los Renteria MD - Last Filed: 10/21/24 06:07> MDM - Abdominal Pain MDM Narrative Medical decision making narrative: 38-year-old male history of inguinal hernia repairs presenting to the emergency depart with nausea, vomiting and abdominal pain. He states the abdominal pain does not feel like his last bowel obstruction over a year ago. He states that he is having normal bowel movements including passing normal stool at 8:00 p.m. prior to the onset of symptoms and currently is passing gas. He was diaphoretic in triage but had normal vital signs. He states he got diaphoretic when they were attempting to draw his blood as he was scared of needles. Patient received some morphine, fluids and Zofran. He has a soft nontender nondistended abdomen. Suspicion for intra-abdominal pathology is low given his overall well appearance and normal vital signs however we will evaluate for any recurrence of a small-bowel obstruction, gastroenteritis, colitis, appendicitis, pancreatitis, cholecystitis. Low suspicion internal hernia or complication from remote surgery. I did review his medical record from last year and patient had a questionable ileus versus small-bowel obstruction that was treated conservatively and he received an NG tube and discharged the following day after resolution on small-bowel follow-through without surgical intervention. Patient states his present symptoms do not resemble that admission. Laboratory studies were ordered as well as a CT scan with contrast. Patient was re-evaluated after initial morphine and Zofran and had no significant pain and was doing much better. He is resting comfortably at this time. His laboratory studies showed a minor leukocytosis 11.6 but no anemia, platelet concerns. He has normal electrolytes, normal LFTs and normal kidney function. Urinalysis shows dehydration but no signs of ketosis, infection or blood. I independently reviewed patient's CT scan and there are some mild dilated bowel loops but no definite transition point. CT was read by radiology with dilated small-bowel loops with fecal material but no transition point, findings may reflect enteritis but cannot exclude partial or developing bowel obstruction. Clinically correlating to exam and history patient does not have signs pointing towards obstruction at this time. Patient's prior CT scan from last year was reviewed and showed significant bowel edema and a transition point which were not present on today's evaluation. I went and re-evaluated the patient and informed him of the CT findings and his laboratory studies. He was comfortable and plan will be to observe him for another couple hours with treatments including fluids, anti-inflammatory such a Pepcid and Toradol for his enteritis. Patient had improvement in pain and currently 0/10 and would be a good candidate for outpatient discharge and follow-up with strict return precautions which he verbalized understanding. <Los Renteria MD - Last Filed: 10/21/24 06:07> Medical Records Attestation: I reviewed the patient's medical records. <Los Renteria MD - Last Filed: 10/21/24 06:07> Lab Data Attestation: I reviewed the patient's lab results. <Yuliya Gary PA-C - Last Filed: 10/25/24 09:19> I reviewed the patient's lab results. <Los Renteria MD - Last Filed: 10/21/24 06:07> Result diagrams: 10/21/24 00:23 10/21/24 00:23 <Yuliya Gary PA-C - Last Filed: 10/25/24 09:19> Labs: Lab Results 10/21/24 10/21/24 Range/Units 00:23 01:49 WBC 11.6 H (4.5-10.0) K/mm3 RBC 5.33 (4.6-6.20) M/mm3 Hgb 15.4 (14.0-18.0) g/dL Hct 45.4 (42.0-52.0) % MCV 85.2 (80-100) fl MCH 28.9 (26-34) pg MCHC 33.9 (32-36) g/dl RDW 11.9 (11.5-14.5) % Plt Count 306 (150-375) k/mm3 MPV 10.9 H (7.4-10.4) fl Immature Gran % (Auto) 0.6 H (0-0.5) % Neut % (Auto) 61.0 (45.5-73.1) % Lymph % (Auto) 31.4 (18.3-44.2) % Power % (Auto) 5.5 (2.6-8.5) % Eos % (Auto) 1.1 (0-4.4) % Baso % (Auto) 0.4 (0.2-1.2) % Lymph # (Auto) 3.64 H (0.9-3.2) K/mm3 Power # (Auto) 0.6 (0.1-0.6) K/mm3 Eos # (Auto) 0.1 (0-0.3) K/mm3 Baso # (Auto) 0.1 (0.0-0.1) K/mm3 Abs Immat Gran (auto) 0.07 H (0.00-0.031) K/mm3 Absolute Neuts (auto) 7.1 H (1.3-6.7) K/mm3 Absolute Nucleated RBC 0.000 (0.0-0.012) K/mm3 Nucleated RBC % 0.0 (0.0-0.2) % Sodium 138 (137-145) mmol/L Potassium 4.1 (3.4-5.0) mmol/L Chloride 104 (98-107) mmol/L Carbon Dioxide 23 (22-30) mmol/L Anion Gap 11 (4-12) mmol/L BUN 17 (9-20) mg/dL Creatinine 0.80 (0.7-1.3) mg/dL Estim Creat Clear Calc 122 ml/min Estimated GFR > 60 (59 - ) Glucose 121 H (65-110) mg/dL Calcium 9.8 (8.4-10.2) mg/dL Total Bilirubin 0.7 (0.2-1.3) mg/dL AST 29 (17-59) U/L ALT 27 (6-50) U/L Alkaline Phosphatase 53 (38-126) U/L Total Protein 8.0 (6.3-8.2) g/dL Albumin 4.7 (3.5-5.1) g/dL Lipase 187 (23-300) U/L Urine Color Yellow (Yellow) Urine Appearance Clear (Clear) Urine pH 8.5 (5.0-9.0) Ur Specific [place] > 1.045 H (1.001-1.035) Urine Protein Trace (Negative) mg/dL Urine Glucose (UA) Negative (Negative) mg/dL Urine Ketones Negative (Negative) mg/dL Ur Blood (Man) Negative (Negative) Urine Nitrate Negative (Negative) Urine Bilirubin Negative (Negative) Urine Urobilinogen 1.0 (<2.0) mg/dL Leukocyte Esterase Rfl Negative (Negative) SHANICE/UL Urine RBC 0-2 (0-2) /hpf Urine WBC 0-5 (0-3) /hpf Ur Squamous Epith Cells None seen (Few) /hpf Urine Bacteria None seen /hpf Urine Casts 0-2 <Yuliya Gary PA-C - Last Filed: 10/25/24 09:19> Lab Results 10/21/24 10/21/24 Range/Units 00:23 01:49 WBC 11.6 H (4.5-10.0) K/mm3 RBC 5.33 (4.6-6.20) M/mm3 Hgb 15.4 (14.0-18.0) g/dL Hct 45.4 (42.0-52.0) % MCV 85.2 (80-100) fl MCH 28.9 (26-34) pg MCHC 33.9 (32-36) g/dl RDW 11.9 (11.5-14.5) % Plt Count 306 (150-375) k/mm3 MPV 10.9 H (7.4-10.4) fl Immature Gran % (Auto) 0.6 H (0-0.5) % Neut % (Auto) 61.0 (45.5-73.1) % Lymph % (Auto) 31.4 (18.3-44.2) % Power % (Auto) 5.5 (2.6-8.5) % Eos % (Auto) 1.1 (0-4.4) % Baso % (Auto) 0.4 (0.2-1.2) % Lymph # (Auto) 3.64 H (0.9-3.2) K/mm3 Power # (Auto) 0.6 (0.1-0.6) K/mm3 Eos # (Auto) 0.1 (0-0.3) K/mm3 Baso # (Auto) 0.1 (0.0-0.1) K/mm3 Abs Immat Gran (auto) 0.07 H (0.00-0.031) K/mm3 Absolute Neuts (auto) 7.1 H (1.3-6.7) K/mm3 Absolute Nucleated RBC 0.000 (0.0-0.012) K/mm3 Nucleated RBC % 0.0 (0.0-0.2) % Sodium 138 (137-145) mmol/L Potassium 4.1 (3.4-5.0) mmol/L Chloride 104 (98-107) mmol/L Carbon Dioxide 23 (22-30) mmol/L Anion Gap 11 (4-12) mmol/L BUN 17 (9-20) mg/dL Creatinine 0.80 (0.7-1.3) mg/dL Estim Creat Clear Calc 122 ml/min Estimated GFR > 60 (59 - ) Glucose 121 H (65-110) mg/dL Calcium 9.8 (8.4-10.2) mg/dL Total Bilirubin 0.7 (0.2-1.3) mg/dL AST 29 (17-59) U/L ALT 27 (6-50) U/L Alkaline Phosphatase 53 (38-126) U/L Total Protein 8.0 (6.3-8.2) g/dL Albumin 4.7 (3.5-5.1) g/dL Lipase 187 (23-300) U/L Urine Color Yellow (Yellow) Urine Appearance Clear (Clear) Urine pH 8.5 (5.0-9.0) Ur Specific [place] > 1.045 H (1.001-1.035) Urine Protein Trace (Negative) mg/dL Urine Glucose (UA) Negative (Negative) mg/dL Urine Ketones Negative (Negative) mg/dL Ur Blood (Man) Negative (Negative) Urine Nitrate Negative (Negative) Urine Bilirubin Negative (Negative) Urine Urobilinogen 1.0 (<2.0) mg/dL Leukocyte Esterase Rfl Negative (Negative) SHANICE/UL Urine RBC 0-2 (0-2) /hpf Urine WBC 0-5 (0-3) /hpf Ur Squamous Epith Cells None seen (Few) /hpf Urine Bacteria None seen /hpf Urine Casts 0-2 <Los Renteria MD - Last Filed: 10/21/24 06:07> Imaging Data Attestation: I personally reviewed and interpreted this imaging study as follows: <Los Renteria MD - Last Filed: 10/21/24 06:07> My impression: Mildly dilated bowel loops with fecal material, no transition point. Findings suspicious for enteritis but partial or developing bowel obstruction not excluded. <Los Renteria MD - Last Filed: 10/21/24 06:07> Radiologist's impression: ITS Impressions Abdomen/Pelvis CT 10/21/24 05:27 Impression: Findings suspicious for early or partial small bowel obstruction. <Yuliya Gary PA-C - Last Filed: 10/25/24 09:19> ITS Impressions Abdomen/Pelvis CT 10/21/24 05:27 Impression: Findings suspicious for early or partial small bowel obstruction. <Los Renteria MD - Last Filed: 10/21/24 06:07> Critical Care Time Critical Care Time Critical Care Time: No <Yuliya Gary PA-C - Last Filed: 10/25/24 09:19> Discharge Plan Discharge Clinical Impression: Enteritis Abdominal pain Qualifiers: Abdominal location: generalized Qualified Code(s): R10.84 - Generalized abdominal pain <JERRI Winston Last Filed: 10/25/24 09:19> Patient Disposition: Home <JERRI Winston Last Filed: 10/25/24 09:19> Condition: Stable <JERRI Winston Last Filed: 10/25/24 09:19> Instructions: Antibiotic Form, Gastroenteritis (DC), Abdominal Pain (ED) <JERRI Winston Last Filed: 10/25/24 09:19> Additional Instructions: Your CT scan shows gastroenteritis and some mildly dilated bowel loops but no signs of definitive obstruction. Your laboratory studies are reassuring and your symptoms went away with minimal intervention. You are safe to go home at this time but if you have any recurrence of your abdominal pain, intractable nausea or vomiting, inability to pass stool or gas, worsening pain or bloating return to the emergency department at that time. Stick with a bland diet for the next several days including clear liquids such as water, broth, electrolyte solutions and bland foods such as toast, rice, applesauce, bananas and potatoes for the next 24-48 hours and then he can start gradually adding more foods as you tolerate. Return with any concerns at any time. Follow-up with your doctor as outpatient. <Yuliya Gary PA-C - Last Filed: 10/25/24 09:19> Patient Language: Georgian <Yuliya Gary PA-C - Last Filed: 10/25/24 09:19> Prescriptions: New famotidine [Pepcid] 20 mg tablet 20 mg PO BID Qty: 20 0RF dicyclomine 20 mg tablet 20 mg PO TID PRN (Reason: abdominal pain) Qty: 20 0RF ondansetron 4 mg tablet,disintegrating 4 mg PO Q8H PRN (Reason: nausea and vomiting) Qty: 10 0RF magnesium citrate Solution 150 ml PO DAILY PRN (Reason: constipation) Qty: 296 0RF <JERRI Winston Last Filed: 10/25/24 09:19> Follow-up/Referrals: Vasquez,Lyle Byrne MD [Primary Care Provider] - <JERRI Winston Last Filed: 10/25/24 09:19> Time of Disposition: 04:12 <Yuliya Gary PA-C - Last Filed: 10/25/24 09:19> 04:12 <Los Renteria MD - Last Filed: 10/21/24 06:07>
[2024-10-21] MEDS: SODIUM CHLORIDE 0.9% IV 1,000 ML 999 ML IV CONT (00:25)
[2024-10-21] MEDS: ONDANSETRON INJ 4 MG/2 ML VIAL IV PUSH (00:28)
[2024-10-21 00:40] LABS: Alanine Aminotransferase 27 U/L (6-50); Albumin Level 4.7 g/dL (3.5-5.1); Alkaline Phosphatase 53 U/L (38-126); Anion Gap 11 mmol/L (4-12); Aspartate Amino Transferase 29 U/L (17-59); Bilirubin,Total 0.7 mg/dL (0.2-1.3); Blood Urea Nitrogen 17 mg/dL (9-20); Calcium 9.8 mg/dL (8.4-10.2); Carbon Dioxide 23 mmol/L (22-30); Chloride 104 mmol/L (98-107); Estimated CRCL calculation 122 ml/min; Estimated Glomerular Filt Rate > 60; Glucose 121 mg/dL (65-110); Lipase 187 U/L (23-300); Potassium 4.1 mmol/L (3.4-5.0); Sodium 138 mmol/L (137-145)
--- OUTSIDE RECORDS SUMMARY | 2024-10-21 01:00 | XMS_ITS | Referral Summary ---
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 There is no laboratory evidence of HCV infection. In most cases, no further action is required. However, if recent HCV exposure is suspected, a test for HCV RNA (test code 21543) is suggested. For additional information please refer to http://education.Soil IQ/faq/UQC61c1 (This link is being provided for informational/ educational purposes only.) 04/08/2024 1:30 PM CDT 04/08/2024 1:35 PM CDT Narrative [facility] - 04/09/2024 6:55 AM CDT FASTING:NO FASTING: NO Lyle Ovalle MD LAB MICROBIOLOGY - GENERAL ORDERABLES Final Result [facility] [address] [place] [address] from Last 3 Months or Most Recently Relevant to Health Maintenance Insurance [employer] [place] HMO/POS [employer] [place] HMO/POS Care Teams Advertising Sales Representative Relationship Specialty Start Date End Date Lyle Ovalle MD [address] [place] [address] PCP - General Family Medicine 04/05/24
--- OUTSIDE RECORDS SUMMARY | 2024-10-21 01:00 | XMS_ITS | Clinical Summary ---
Author Organization 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 For additional information please refer to http://education.Audience.fm/faq/BNY31v0 (This link is being provided for informational/ educational purposes only.) 04/08/2024 1:30 PM CDT 04/08/2024 1:35 PM CDT Narrative [facility] - 04/09/2024 6:55 AM CDT FASTING:NO FASTING: NO us Lyle Ovalle MD LAB MICROBIOLOGY - GENERAL ORDERABLES Final Result [facility] [address] [place] [address] from Last 3 Months or Most Recently Relevant to Health Maintenance Insurance [employer] rVueY HMO/POS [employer] rVueY HMO/POS Care Teams Structural Engineering Project Manager Relationship Specialty Start Date End Date Lyle Ovalle MD [address] [place] [address] PCP - General Family Medicine 04/05/24
--- OUTSIDE RECORDS SUMMARY | 2024-10-21 01:00 | XMS_ITS | Clinical Summary ---
Author Organization [facility] Address [address] [place] [address] Care Team Providers Care Cogeneration Operator Name Role Phone None, Physician Primary Care Provider Unavailabl e Source Comments [facility],non-owned Affiliates and Associated Physician Practices is amultiple site organization consisting of ambulatory clinics and hospital sitesin [place], [place], [place] and [place]. This disclosure is being madepursuant to the Care Everywhere program and may not contain all information available regarding this patient. Last updated 18.[facility] Allergies No known active allergies Medications * [...] Active azelastine (Astelin) 0.1 % nasal spray [place] 1 (one) spray into each nostril 2 times daily 90 mL 4 09/14/2024 Active fluticasone propionate (Flonase) 50 MCG/ACT nasal spray SPRAY 2 SPRAYS INTO EACH NOSTRIL EVERY DAY 16 g 2 10/11/2024 Active fluticasone propionate (Flonase) 50 MCG/ACT nasal spray [place] 2 (two) sprays into each nostril once daily 16 g 09/14/2024 10/11/2024 Discontinued Active Problems No known active problems Encounters Date Type Department Care Team Description 10/11/2024 Refill [facility] - ENT [address] [place] [phone] Sal Kaiser MD Refill Request 09/14/2024 8:45 AM TACK PULLER Office Visit [facility] - ENT [address] [place] [phone] Lamont Quintana MD Rhinitis, unspecified type (Primary [...] Comments Blood Pressure 101/71 09/14/2024 8:46 AM TACK PULLER Pulse 78 09/14/2024 8:46 AM TACK PULLER Temperature - - Respiratory Rate - - Oxygen Saturation - - Inhaled Oxygen Concentration - - Weight 98.5 kg (217 lb 3.2 oz) 09/14/2024 8:46 A M TACK PULLER Height 182.9 cm (6') 09/14/2024 8:46 AM TACK PULLER Body Mass Index 29.46 09/14/2024 8:46 AM TACK PULLER Plan of Treatment Upcoming Encounters Date Type Department Care Team (Late st Contact Info) Description 10/26/2024 2:45 PM CDT Office Visit [facility] - ENT [address] [place] [phone] Lamont Quintana MD [address] [place] [address] [place] [address] Health Maintenance Due Date Last Done Comments [...] Procedure Name Priority Date/Time Associated Diagnosis Comments [place] LARYNGOSCOPY,FLEX FIBER,DIAGNOSTIC Routine 09/14/2024 9:47 AM TACK PULLER Rhinitis, unspecified type S/P FESS (functional endoscopic sinus surgery) Deviated septum from Last 3 Months Results * OH LARYNGOSCOPY,FLEX FIBER,DIAGNOSTIC (09/14/2024 9:47 AM TACK PULLER) Narrative Sal Kaiser MD - 09/14/2024 9:47 AM TACK PULLER Sal Kaiser MD 09/14/2024 2:50 PM Procedure Note Anesthesia: Lidocaine 2% and [place]-Synephrine 1/2% Endoscopy Type: Flexible [id number] Procedure Details: Informed consent was obtained. The [...] ORDERABLES from Last 3 Months Care Teams Cogeneration Operator Relationship Specialty Start Date End Date None, Physician PCP - General 09/14/24
[2024-10-21 01:23] LABS: Basophils Absolute Auto 0.1 K/mm3 (0.0-0.1); Basophils Percent Auto 0.4 % (0.2-1.2); Eosinophils Absolute Auto 0.1 K/mm3 (0-0.3); Eosinophils Percent Auto 1.1 % (0-4.4); Hematocrit 45.4 % (42.0-52.0); Hemoglobin 15.4 g/dL (14.0-18.0); Immature Granulocyte Absolute 0.07 K/mm3 (0.00-0.031); Immature Granulocyte Percent A 0.6 % (0-0.5); Lymphocytes Absolute Auto 3.64 K/mm3 (0.9-3.2); Lymphocytes Percent Auto 31.4 % (18.3-44.2); Mean Corpuscular HGB Conc 33.9 g/dl (32-36); Mean Corpuscular Hemoglobin 28.9 pg (26-34); Mean Corpuscular Volume 85.2 fl (80-100); Mean Platelet Volume 10.9 fl (7.4-10.4); Monocytes Absolute Auto 0.6 K/mm3 (0.1-0.6); Monocytes Percent Auto 5.5 % (2.6-8.5); Neutrophils Absolute Auto 7.1 K/mm3 (1.3-6.7); Platelet Count Result 306 k/mm3 (150-375); Red Blood Count 5.33 M/mm3 (4.6-6.20); Red Cell Distribution Width 11.9 % (11.5-14.5); White Blood Count 11.6 K/mm3 (4.5-10.0)
[2024-10-21] MEDS: MORPHINE SULFATE (*CRX) 4 MG/ML INJ IV PUSH (01:26)
[2024-10-21 01:28] VITALS: BP 163/93; PULSE 72; RESP 16; O2SAT 100
[2024-10-21 02:01] LABS: Add Urine Microscopic? YES; Appearance Urine Clear (Clear); Bacteria Urine None Seen /hpf; Bilirubin Urine Negative (Negative); Blood Urine Negative (Negative); Color Urine Yellow (Yellow); Glucose Urine UA Negative (Negative); Ketones Urine Negative (Negative); Leukocyte Esterase Ur Negative LEU/UL (Negative); Nitrate Urine Negative (Negative); Non Pathogenic Casts 0-2; Protein Urine Trace mg/dL (Negative); RBC Urine 0-2 /hpf (0-2); Specific Grav Ur > 1.045 (1.001-1.035); Squamous Epithelial Cell Urine None Seen /hpf (Few); WBC Urine 0-5 /hpf (0-3); pH Urine 8.5 (5.0-9.0)
[2024-10-21] MEDS: DEXTROSE 5%/LACTATED RINGERS 1,000 ML 999 ML IV CONT (03:00)
[2024-10-21] MEDS: FAMOTIDINE 20 MG/2 ML VIAL IV PUSH (03:01)
[2024-10-21] MEDS: KETOROLAC 15 MG/ML VIAL (*BKC) IV PUSH (03:01)
[2024-10-21 03:04] VITALS: BP 134/81; PULSE 68; RESP 16; O2SAT 97
[2024-10-21 03:56] VITALS: BP 126/60; PULSE 69; RESP 16; O2SAT 98
[2024-10-21 04:18] VITALS: BP 113/60; PULSE 78; RESP 16; O2SAT 98
== END 2024-10-21 04:19 | disposition home or self-care (01) ==
PROVIDERS: Emergency Provider Physician Assistant; PCP Family Medicine
DX: K52.9 Noninfective gastroenteritis and colitis, unspecified (principal); R10.84 Generalized abdominal pain
CPT/HCPCS: 36415; 74177; 80053; 81001; 83690; 85025; 96361; 96374; 96375; 99284; J1885; J2270; J2405; J7030; J7121; Q9967